=== PATIENT | female | born 1940 | race Caucasian/White ===

== ENCOUNTER 2016-10-11 15:46 | Emergency (ER) | payer MEDICARE, OTHER ==
[~2016-10-11] VITALS: Ht 160 cm; Wt 60.0 kg
[2016-10-11 15:50] VITALS: Ht 160 cm; Wt 60.0 kg
[2016-10-11] MEDS ORDERED: SOD CHLORIDE 0.9% 1,000 ML IV STA (16:11)
[2016-10-11] MEDS ORDERED: FAMOTIDINE 20 MG INJ IV STA (16:11)
[2016-10-11] MEDS ORDERED: ONDANSETRON 4 MG INJ IV STA (16:11)
[2016-10-11 16:15] LABS: URINE BLOOD (Dip) POC Trace-intact (NEGATIVE)
[2016-10-11 16:27] LABS: ADD UMIC YES; UR ASCORBIC ACID NEGATIVE (NEGATIVE); UR BILIRUBIN (Dip) NEGATIVE (NEGATIVE); UR BLOOD (Dip) 1+ mg/dL (NEGATIVE); UR CLARITY CLEAR (CLEAR); UR COLOR YELLOW (YELLOW); UR GLUCOSE (Dip) NEGATIVE (NEGATIVE); UR KETONES (Dip) NEGATIVE (NEGATIVE); UR LEUKOCYTE ESTERASE (Dip) NEGATIVE Leu/ul (NEGATIVE); UR NITRITE (Dip) NEGATIVE (NEGATIVE); UR RBC 0 /HPF (0-5); UR SPECIFIC GRAVITY (Dip) 1.016 (1.003-1.030); UR TOTAL PROTEIN (Dip) NEGATIVE (NEGATIVE); UR UROBILINOGEN (Dip) NEGATIVE (NEGATIVE)
[2016-10-11 16:32] LABS: URINE BLOOD (Dip) POC Trace-intact (NEGATIVE)
[2016-10-11 16:33] LABS: URINE BLOOD (Dip) POC Trace-intact (NEGATIVE)
[2016-10-11 16:57] LABS: ADD SCAN DIFF NO
[2016-10-11 16:58] LABS: BASOPHIL # 0.1 10^3/ul (0.0-0.1); BASOPHILS % 0.4 % (0.0-2.0); EOSINOPHILS % 0.1 % (0.0-7.0); HEMATOCRIT 43.9 % (37.0-47.0); HEMOGLOBIN 14.6 g/dl (12.0-16.0); LYMPHOCYTES # 2.5 10^3/ul (0.8-2.9); LYMPHOCYTES % 19.5 % (15.0-51.0); MEAN CORPUSCULAR HEMOGLOBIN 29.8 pg (29.0-33.0); MEAN CORPUSCULAR HGB CONC 33.3 g/dl (32.0-37.0); MEAN CORPUSCULAR VOLUME 89.6 fl (82.0-101.0); MEAN PLATELET VOLUME 10.9 fl (7.4-10.4); MONOCYTE # 1.4 10^3/ul (0.3-0.9); MONOCYTES % 10.6 % (0.0-11.0); NEUTROPHIL # 8.9 10^3/ul (1.6-7.5); NEUTROPHILS % 69.1 % (39.0-77.0); PLATELET COUNT 299 10^3/UL (140-415); RED CELL DISTRIBUTION WIDTH 13.3 % (11.5-14.5); WHITE BLOOD COUNT 12.9 10^3/ul (4.8-10.8)
[2016-10-11 17:13] LABS: URINE BLOOD (Dip) POC 2+ (NEGATIVE)
[2016-10-11 17:22] LABS: ALBUMIN/GLOBULIN RATIO 1.42; BILIRUBIN,INDIRECT 1.9 mg/dl (0-1.1); BILIRUBIN,TOTAL 1.9 mg/dl (0.2-1.3); CALCIUM 9.6 mg/dl (8.4-10.2); CREATININE 1.13 mg/dl (0.44-1.00); POTASSIUM 3.7 mmol/L (3.5-5.1); TOTAL PROTEIN 8.5 g/dl (6.1-8.1)
--- NOTE | 2016-10-11 17:25 | RADRPT ---
PROCEDURE: CT Abdomen and Pelvis without contrast. CLINICAL INDICATION: Abdominal and pelvic pain. Vomiting. TECHNIQUE: CT scan of the abdomen and pelvis without contrast was performed. Coronal and sagittal reformatted images were obtained from the axial source images. Images were reviewed on a high-resolu [employer] PACS workstation. Total exam DLP is 397.66 mGy-cm. CTDIvol is 8.02 mGy. One or more of the fo llowing dose reduction techniques were used: Automated exposure control, adjustment of the mA and/or kV according to patient size, use of iterative reconstruction technique. COMPARISON: None. FINDINGS: The lung bases are normal. There is no pleural effusion. The liver is normal in size and attenuation. There is no focal hepatic lesion. The gallbladder is abnormal with thickening of the wall, surrounding mesenteric edema, and gallstone s consistent with acute cholecystitis. The bile ducts are not dilated. The spleen is normal in size. There is no focal splenic lesion. Both adrenals are normal with no enlargement or mass. The pancreas is unremarkable with no mass or evidence of pancreatitis. There is fullness of the renal sinus bilaterally which may be due to hydronephrosis or renal sinus c ysts. There are small benign left renal cortical cysts. The abdominal aorta is not dilated. There is calcification in the aorta consistent with atheroscler osis. There is no retroperitoneal lymphadenopathy or mass. There is no pelvic lymphadenopathy or mass. The bladder and distal ureters are normal. The periappendiceal region is unremarkable with no evidence of appendicitis. The appendix is well s een and appears normal. There is diverticulosis of the colon without evidence of diverticulitis. The bowel and mesentery ar e otherwise normal. There is no free fluid or free gas. There are degenerative changes of the spine. There is no fracture or lytic lesion. IMPRESSION: 1. Acute cholecystitis. 2. Bilateral hydronephrosis or renal sinus cysts. Clinical correlation advised. 3. Small benign left renal cortical cysts. 4. Atherosclerosis. 5. Normal appendix. 6. Diverticulosis of the colon without evidence of diverticulitis. 7. Degenerative changes of the spine. 8. Otherwise unremarkable study. Call report: A call report of the findings was made to Dr. Eldridge on 07 at 1725 hours. RPTAT: QQ .Narinder Bermudez MD, MD Date Time Electronically viewed and signed by .Narinder Bermudez MD, MD on 10/11/2016 17:24 .R/
[2016-10-11] MEDS ORDERED: PIPER-TAZO 3.375 GM IV (PMX) 100 ML IVPB ONE (17:30)
[2016-10-11] MEDS ORDERED: ONDA4TAB14 PO (17:47)
[2016-10-11] MEDS ORDERED: HYDR-902 PO (17:47)
--- NOTE | 2016-10-11 19:57 | ERD ---
ER Documentation Chief Complaint Date/Time DATE: 10/11/16 TIME: 19:54 Chief Complaint N/V/D x 5 days HPI Patient is a 76-year-old female who presents with abdominal pain. She has abdominal pain along with nausea, vomiting, and diarrhea for the past 5 days. The abdominal pain is in the right upper quadrant upper abdomen. The pain comes and goes. She has had no fevers. She has had no treatment as of yet. Upon review of old medical records this is the patient's third visit to the ER. She does not currently have a primary doctor. ROS All systems reviewed and are negative except as per history of present illness. Medications Home Meds Active Scripts Ondansetron (Ondansetron Odt) 4 Mg Tab.rapdis, 4 MG PO Q6H Y for NAUSEA AND/OR VOMITING, #10 TAB Prov:ANNIKA NAPOLES MD 10/11/16 Hydrocodone/Acetaminophen ([place] 10-325 Tablet) 1 Each Tablet, 1 TAB PO Q6H Y for PAIN, #7 TAB Prov:ANNIKA NAPOLES MD 10/11/16 Allergies Allergies: Uncoded Allergies: PENICILLIN (Allergy, Unknown, 08/17/15) PMhx/Soc Medical and Surgical Hx: pt denies Medical Hx History of Surgery: No Anesthesia Reaction: No Hx Neurological Disorder: No Hx Respiratory Disorders: No Hx Cardiac Disorders: No Hx Psychiatric Problems: No Hx Miscellaneous Medical Probl: No Hx Alcohol Use: No Hx Substance Use: No Hx Tobacco Use: No Smoking Status: Never smoker FmHx Family History: No diabetes Physical Exam Vitals Vital Signs Date Time Temp Pulse Resp B/P Pulse Ox O2 Delivery O2 Flow Rate FiO2 10/11/16 15:50 98.1 102 18 139/72 99 Physical Exam Const: Mild distress secondary to pain Head: Atraumatic Eyes: Normal Conjunctiva ENT: Normal External Ears, Nose and Mouth. Neck: Full range of motion..~ No meningismus. Resp: Clear to auscultation bilaterally Cardio: Regular rate and rhythm, no murmurs Abd: Right upper quadrant tenderness to palpation without rebound or guarding Skin: No petechiae or rashes Back: No midline or flank tenderness Ext: No cyanosis, or edema Neur: Awake and alert Psych: Normal Mood and Affect Result Diagram: 10/11/16 1655 10/11/16 1655 Results 24 hrs Laboratory Tests Test 10/11/16 16:14 10/11/16 16:20 10/11/16 16:55 10/11/16 17:18 Urine Color YELLOW Urine Clarity CLEAR Urine pH 5.0 Urine Specific [place] 1.016 Urine Ketones NEGATIVEmg/dL Urine Nitrite NEGATIVEmg/dL Urine Bilirubin NEGATIVEmg/dL Urine Urobilinogen NEGATIVEmg/dL Urine Leukocyte Esterase NEGATIVELeu/ul Urine Microscopic RBC 0/HPF Urine Microscopic WBC 0/HPF Urine Hemoglobin 1+mg/dL Urine Glucose NEGATIVEmg/dL Urine Total Protein NEGATIVEmg/dl Bedside Urine pH (LAB) 5.5 5.0 Bedside Urine Protein (LAB) Negative 2+ Bedside Urine Glucose (UA) Negative Negative Bedside Urine Ketones (LAB) Negative 1+ Bedside Urine Blood Trace-intact 2+ Bedside Urine Nitrite (LAB) Negative Negative Bedside Urine Leukocyte Esterase (L Negative Negative White Blood Count 12.910^3/ul Red Blood Count 4.9010^6/ul Hemoglobin 14.6g/dl Hematocrit 43.9% Mean Corpuscular Volume 89.6fl Mean Corpuscular Hemoglobin 29.8pg Mean Corpuscular Hemoglobin Concent 33.3g/dl Red Cell Distribution Width 13.3% Platelet Count 21139^3/UL Mean Platelet Volume 10.9fl Neutrophils % 69.1% Lymphocytes % 19.5% Monocytes % 10.6% Eosinophils % 0.1% Basophils % 0.4% Nucleated Red Blood Cells % 0.0/100WBC Neutrophils # 8.910^3/ul Lymphocytes # 2.510^3/ul Monocytes # 1.410^3/ul Eosinophils # 0.010^3/ul Basophils # 0.110^3/ul Nucleated Red Blood Cells # 0.010^3/ul Sodium Level 140mmol/L Potassium Level 3.7mmol/L Chloride Level 103mmol/L Carbon Dioxide Level 22mmol/L Anion Gap 19 Blood Urea Nitrogen 36mg/dl Creatinine 1.13mg/dl Glucose Level 115mg/dl Calcium Level 9.6mg/dl Total Bilirubin 1.9mg/dl Direct Bilirubin 0.00mg/dl Indirect Bilirubin 1.9mg/dl Aspartate Amino Transf (AST/SGOT) 33IU/L Alanine Aminotransferase (ALT/SGPT) 39IU/L Alkaline Phosphatase 108IU/L Total Protein 8.5g/dl Albumin 5.0g/dl Globulin 3.50g/dl Albumin/Globulin Ratio 1.42 Lipase 78U/L Current Medications Medications (Trade) Dose Ordered Sig/Phil Route PRN Reason Start Time Stop Time Status Last Admin Dose Admin Sodium Chloride (NS) 1,000 ml @ 1,000 mls/hr Q1H STAT IV 10/11/16 16:11 10/11/16 17:10 DC 10/11/16 17:00 Ondansetron HCl (Zofran Inj) 4 mg ONCE STAT IV 10/11/16 16:11 10/11/16 16:13 DC 10/11/16 17:01 Famotidine 20 mg 20 mg ONCE STAT IV 10/11/16 16:11 10/11/16 16:13 DC 10/11/16 17:01 Piperacillin Sod/ Tazobactam Sod (Zosyn 3.375gm/ 100 ml (Pmx)) 100 ml @ 200 mls/hr ONCE ONCE IVPB 10/11/16 17:30 10/11/16 17:59 DC Procedures/MDM CT scan shows acute cholecystitis per radiology. Patient is a 76-year-old female who presents with acute cholecystitis. She has a white count of 12.9. Given her age and acute cholecystitis I want to admit her to the hospital for surgical removal. However she is adamant that she does not want surgery and does not want to stay in the hospital. I did have a long discussion with her regarding the risk of leaving AGAINST MEDICAL ADVICE and she understands the risks of serious morbidity and even but she still wants to leave AGAINST MEDICAL ADVICE. She will be given a prescription for [place] and Zofran as well as information for Dr. Cunha who was her surgeon on- call. I told her she could return to the ER if she wants to be admitted and had surgery at any time. She can return for any worsening symptoms. I did advise against her leaving AGAINST MEDICAL ADVICE. Departure Diagnosis: Primary Impression: Acute cholecystitis Additional Impression: Nausea and vomiting Vomiting type: unspecified Vomiting Intractability: non-intractable Qualified Code: R11.2 - Non-intractable vomiting with nausea, unspecified vomiting type Condition: Serious Patient Instructions: Cholecystitis, Confirmed Referrals: PURNIMA CUNHA [facility] YOU HAVE RECEIVED A MEDICAL SCREENING EXAM AND THE RESULTS INDICATE THAT YOU DO NOT HAVE A CONDITION THAT REQUIRES URGENT TREATMENT IN THE EMERGENCY DEPARTMENT. FURTHER EVALUATION AND TREATMENT OF YOUR CONDITION CAN WAIT UNTIL YOU ARE SEEN IN YOUR DOCTORS OFFICE WITHIN THE NEXT 1-2 DAYS. IT IS YOUR RESPONSIBILITY TO MAKE AN APPOINTMENT FOR FOLOW-UP CARE. IF YOU HAVE A PRIMARY DOCTOR --you should call your primary doctor and schedule an appointment IF YOU DO NOT HAVE A PRIMARY DOCTOR YOU CAN CALL OUR PHYSICIAN REFERRAL HOTLINE AT IF YOU CAN NOT AFFORD TO SEE A PHYSICIAN YOU CAN CHOSE FROM THE FOLLOWING FORMERLY [facility], [facility] [address] [facility] [address] [facility] [address] [facility] [facility] [address] [facility]. [facility] [address] [facility] [facility] [address] Additional Instructions: SPECIALIST: YOU HAVE A MEDICAL CONDITION WHICH REQUIRES YOU TO SEE A SPECIALIST WITHIN THE NEXT 1-2 DAYS. PLEASE FOLLOW UP WITH YOUR PRIMARY PHYSICIAN FOR REFFERAL.IF YOU DO NOT HAVE A PRIMARY CARE PHYSICIAN AND/OR YOU CAN NOT AFFORD TO SEE A PHYSICIAN THE FOLLOWING RESOURCES HAVE BEEN SUPPLIED TO YOU. IT IS YOUR RESPONSIBILITY TO BE SEEN BY THE SPECIALIST ANNIKA NAPOLES MD Oct 11, 2016 19:56
== END 2016-10-11 18:30 | disposition left against medical advice (07) ==
LOC: FTE 15:46
DX: K81.0 Acute cholecystitis (principal)
CPT/HCPCS: 36415; 74176; 80053; 81001; 81003; 83690; 85025; 96374; 96375; 99285; J2405; J2543; J7030